=== PATIENT | female | born 1995 | race Caucasian/White ===

== ENCOUNTER 2018-06-07 13:52 | Emergency (ER) | payer MEDICAID ==
[~2018-06-07] VITALS: Ht 165.1 cm; Wt 119.3 kg
[2018-06-07 18:11] VITALS: BP 107/71
== END 2018-06-07 18:11 | disposition home or self-care (01) ==
LOC: ED 13:52
DX: S09.8XXA Other specified injuries of head, initial encounter (principal); S83.92XA Sprain of unspecified site of left knee, initial encounter; S69.91XA Unspecified injury of right wrist, hand and finger(s), initial encounter; V43.52XA Car driver injured in collision with other type car in traffic accident, initial encounter; Y93.I9 Activity, other involving external motion; Y92.488 Other paved roadways as the place of occurrence of the external cause; Y99.8 Other external cause status

== ENCOUNTER 2018-06-11 19:40 | Emergency (ER) | payer MEDICAID ==
[~2018-06-11] VITALS: Ht 165.1 cm; Wt 120.7 kg
[2018-06-11 20:07] VITALS: Ht 165.1 cm; Wt 120.7 kg
[2018-06-11 23:10] VITALS: BP 114/67
== END 2018-06-11 23:10 | disposition home or self-care (01) ==
LOC: ED 19:40
DX: S39.012D Strain of muscle, fascia and tendon of lower back, subsequent encounter (principal); V43.52XD Car driver injured in collision with other type car in traffic accident, subsequent encounter
CPT/HCPCS: J1885

== ENCOUNTER 2018-12-12 09:37 | Emergency (ER) | payer SELFPAY ==
[~2018-12-12] VITALS: Ht 165.1 cm; Wt 118.8 kg
[2018-12-12 09:39] VITALS: BP 146/81; Ht 165.1 cm; Wt 118.8 kg
== END 2018-12-12 10:36 | disposition home or self-care (01) ==
LOC: ED 09:37
DX: H66.91 Otitis media, unspecified, right ear (principal); J03.90 Acute tonsillitis, unspecified

== ENCOUNTER 2020-03-22 00:35 | Emergency (ER) | payer SELFPAY ==
[~2020-03-22] VITALS: Ht 165.1 cm; Wt 113.4 kg
[2020-03-22 00:55] VITALS: BP 125/53
== END 2020-03-22 01:12 | disposition home or self-care (01) ==
LOC: ED 00:35
DX: L50.9 Urticaria, unspecified (principal)